=== PATIENT | male | born 1955 | race Caucasian/White ===

== ENCOUNTER 2024-06-06 13:39 | Inpatient (IN) | payer MEDICARE, OTHER ==
[~2024-06-06] VITALS: Ht 167.6 cm; Wt 78.6 kg
[2024-06-13] VITALS (13 sets, daily range): BP systolic 120–183; BP diastolic 56–86; PULSE 53–83; TEMP 97.2–98.7
[2024-06-13] MEDS ORDERED: LR 1,000 ML IV SCH (05:00)
[2024-06-13] MEDS ORDERED: Meclizine 25 MG TAB PO SCH (05:00)
[2024-06-13] MEDS ORDERED: VITAMIND3 5000 PO (06:34)
[2024-06-13] MEDS ORDERED: GLUCOTROL XL10 MG PO (06:35)
[2024-06-13] MEDS ORDERED: GLUCOPHAGE XR500 M1 PO (06:36)
[2024-06-13] MEDS ORDERED: LOPRESSOR100 MG PO (06:37)
[2024-06-13] MEDS ORDERED: MOTRIN 800800 MG/TAB PO (06:38)
[2024-06-13] MEDS ORDERED: Ondansetron 4 MG/2 ML VIAL IV PRN ×2 (07:00→11:45)
[2024-06-13] MEDS ORDERED: Acetaminophen 500 MG TAB PO PRN (07:00)
[2024-06-13] MEDS ORDERED: NS 1,000 ML IV SCH (07:00)
[2024-06-13] MEDS ORDERED: dexAMETHasone 10 MG/ML VIAL ONE (07:00)
[2024-06-13] MEDS ORDERED: Tranexamic Acid 1,000 MG/10 ML VIAL ONE (07:00)
[2024-06-13] MEDS ORDERED: oxyCODONE 5 MG TAB PO PRN (07:00)
[2024-06-13] MEDS ORDERED: Ondansetron 4 MG/2 ML VIAL ONE (07:00)
[2024-06-13] MEDS ORDERED: Midazolam 2 MG/2 ML VIAL ONE (07:00)
[2024-06-13] MEDS ORDERED: Magnes Hydrox (MOM) 80 MG/ML 30 ML CUP PO PRN (07:00)
[2024-06-13] MEDS ORDERED: Naloxone 0.4 MG/ML VIAL IV PRN (07:00)
[2024-06-13] MEDS ORDERED: Morphine 4 MG/ML VIAL IV PRN (07:00)
[2024-06-13] MEDS ORDERED: Mag/Al Hydrox/Simeth Susp 30 ML CUP PO PRN (07:00)
[2024-06-13] MEDS ORDERED: Lidocaine PF 2% (20 MG/ML) 5 ML VIAL ONE (07:00)
[2024-06-13] MEDS ORDERED: Bisacodyl 5 MG TAB PO PRN (07:00)
[2024-06-13] MEDS ORDERED: Acetaminophen 500 MG TAB PO SCH (07:00)
[2024-06-13] MEDS ORDERED: ZESTORETIC 25 M1 TAB PO (07:08)
[2024-06-13] MEDS ORDERED: NS 10 ML VIAL IJ ONE (08:08)
[2024-06-13] MEDS ORDERED: Thrombin Human (Recombinant) 5,000 UNITS VIAL TP ONE (08:08)
[2024-06-13] MEDS ORDERED: Morphine 4 MG/ML VIAL SQ ONE (08:08)
[2024-06-13] MEDS ORDERED: Sennosides/Docusate 8.6-50 MG TAB PO SCH (09:00)
[2024-06-13] MEDS ORDERED: Rivaroxaban 10 MG TAB PO SCH (09:00)
[2024-06-13] MEDS ORDERED: Ascorbic Acid 500 MG TAB PO SCH (09:00)
[2024-06-13] MEDS ORDERED: Magnes Hydrox (MOM) 80 MG/ML 30 ML CUP PO SCH (09:00)
[2024-06-13] MEDS ORDERED: fentaNYL 50 MCG/ML 1 ML SYRINGE/VIAL [PACU/SDC ONLY] IV PRN (11:45)
[2024-06-13] MEDS ORDERED: HYDROmorphone 1 MG/1 ML SYRINGE [PACU/SDC ONLY] IV PRN (11:45)
[2024-06-13] MEDS ORDERED: hydrALAZINE 20 MG/ML 1 ML VIAL IV PRN (11:45)
--- NOTE | 2024-06-13 12:50 | NUR ---
PT recently arrived to the floor from [facility]. He is awake, alert and oriented. Dressings to both knees are CDI with hemovac to compression. SCDs on bilaterally. Heart rate regular, lung sounds clear. Pedal pulses are hard to find, but able to feel where marked by OR staff. Pt stated that it was normal for him. Oriented pt to his room and educated on room service. Pt reported that has no pain at this time. Pt is able to feel me touch, but stated it was just felt as some pressure. He reports having more feeling on his left leg compared to his right leg.
--- NOTE | 2024-06-13 14:52 | NUR ---
dust box worker met with pt and his , Jana [phone] to discuss discharge planning. He reports to live with his in [place], [place]. He reports his PCP as Dr. Lee Khan and obtains medications from [facility] on [facility] with no difficulties. He confirms his insurance as Medicare A and B and [facility]. He states he is independent with ADLS and uses no DME. He does not have a DPOA-HC and is agreeable to his being NOK. SW informed him PT/OT will meet with him and determine any needs, but SW notes Dr. Shook states OP PT. Pt reports he is not familiar with any in the area. SW advised he research this to see which place he would like to utilize. PT/OT pending Discharge Plan: likely home with OP PT
[2024-06-13] MEDS ORDERED: Ketorolac 15 MG/ML VIAL IV SCH (15:00)
[2024-06-13] MEDS ORDERED: ceFAZolin 2 G in Water For Injection,Sterile 20 ML IV SCH (15:00)
--- NOTE | 2024-06-13 15:30 | NUR ---
PT in to work with pt, pt unable to stand due to not having complete feeling back in his legs. Pt reports that his right knee is bothering him more than the left, but that it is tolerable. Pt reports that he does not need to void, gave him a urinal. IVF to right forearm with fluids infusing. Pt has tolerated ada diet for lunch.
[2024-06-13] MEDS ORDERED: Insulin Lispro (HumaLOG) SQ SCH (17:00)
--- NOTE | 2024-06-13 17:20 | NUR ---
Did assist pt to sitting position. Pt wanted to try standing again. Did have assist from another RN assist with standing. Pt did okay, stood for about a minute and then sat back down. PT did well and reported that pain was tolerable during this. Call light within reach
--- NOTE | 2024-06-13 19:05 | NUR ---
PATIENT RESTING IN BED WITH TV OFF WITH NO FAMILY PRESENT WITH NO ACUTE DISTRESS NOTED. PATIENT ON ROOM AIR. INT TO RIGHT FOREARM INTACT WITH NO COMPLICATIONS NOTED. DRESSINGS TO BILATERAL KNEES CLEAN, DRY, AND INTACT. BILATERAL HEMOVACS INTACT AND DRAINGING. BEDSIDE SHIFT REPORT COMPLETED WITH MARY AT THIS TIME. PATIENT DENIES ANY NEEDS. BED IN LOW POSITION WITH WHEELS LOCKED WITH RAILS UP X3 AND CALL LIGHT WITHIN REACH.
--- NOTE | 2024-06-13 21:05 | NUR ---
PATIENT RESTING IN BED WITH TV OFF WITH NO FAMILY PRESENT WITH NO ACUTE DISTRESS NOTED. PATIENT ON ROOM AIR. INT TO RIGHT FOREARM INTACT WITH NO COMPLICATIONS NOTED. DRESSINGS TO BILATERAL KNEES INTACT, CLEAN, AND DRY. BLOOD SUGAR CHECKED AND WAS 329. PATIENT AGREED TO TAKE 6 UNITS OF INSULIN. ICE PACKS REFILLED. ASSESSMENT AND MEDICATION ADMINISTRATION COMPLETED AT THIS TIME. PATIENT TOLERATED WELL. NIGHT TIME SNACK OF PEANUT BUTTER AND SALTINE CRACKERS GIVEN. PATIENT DENIES ANY PAIN UNLESS HE IS UP WALKING TO BATHROOM. ALL NEEDS MET. BED IN LOW POSITION WITH WHEELS LOCKED WITH RAILS UP X3 AND CALL LIGHT WITHIN REACH.
[2024-06-14] VITALS (14 sets, daily range): BP systolic 117–178; BP diastolic 67–96; PULSE 62–70; TEMP 98.2–99.5
--- NOTE | 2024-06-14 06:52 | NUR ---
Pt doing okay this morning. He reports that he did not sleep well last night due to too many interuptions. Pt says pain is okay right now. I did assist with ordering his breakfast. No other needs, will continue to monitor.
[2024-06-14] MEDS ORDERED: Dextrose (Glucose) 15 GM (4 x 3.75 GM) Chewable TABLET PACK PO PRN (07:15)
[2024-06-14] MEDS ORDERED: Glucagon 1 MG VIAL IM PRN (07:15)
[2024-06-14] MEDS ORDERED: Dextrose 50% Water 25 GM/50 ML SYRINGE IV PRN (07:15)
--- NOTE | 2024-06-14 07:50 | NUR ---
Pt doing okay at this time. Assisted him to the restroom, voided without difficulty. Pt was one assist with a walker. He does have more complaints of pain to his right knee compared to his left. Pt did get his blood pressure taken shortly after arriving back to bed. Morning medications given and pt does have his breakfast with him. PRN pain medication given as well. No other needs, will continue to monitor
--- NOTE | 2024-06-14 09:30 | NUR ---
Pt doing well with one assist using a walker. Pt currently sitting up in the chair. Hemovac removed from right knee without difficulty. Was unable to remove hemovac to left knee. Removed dressing, but still met resistance. Rewrapped knee at this time. Pt has no needs or complaints, will continue to monitor
[2024-06-14 10:22] LABS: HEMATOCRIT 36.2 % (42.0-52.0); HEMOGLOBIN 12.5 g/dl (13.5-18.0)
[2024-06-14] MEDS ORDERED: Lisinopril 20 MG TAB PO SCH (10:30)
--- NOTE | 2024-06-14 11:00 | NUR ---
Pt has been up with OT, pt back in the chair at this time. I attempted to remove hemovac to left knee which did come out without difficult. Removed dressing to his right knee. Painted incision with betadine, covered with abd and wrapped with yang wrap. Pt tolerated with no complaints. No needs at this time, call light within reach and chair alarm on
--- NOTE | 2024-06-14 12:01 | NUR ---
dish room worker met with patient whom expressed he needs a walker for when he is ready for discharge. SW expressed she can assist with that and would send an order and have it delivered before discharge. SW secure emailed walker order and information to [facility]. Discharge plan: Home
--- NOTE | 2024-06-14 12:40 | NUR ---
D: M[employer] Operator [employer] stopped by room on rounds. A: Pt was resting and content. Pt has no needs right now. P: Mangle Operator [employer]ments informed pt that if he needed anything from the cloth folder hand area to let his nurse know. M[employer] will follow up as needed.
[2024-06-14 12:41] LABS: CALCIUM 8.9 mg/dL (8.4-10.2); CREATININE, serum 1.04 mg/dL (0.72-1.25); POTASSIUM 3.5 mEq/L (3.5-4.5)
--- NOTE | 2024-06-14 12:45 | NUR ---
BP was taken shortly after pt got back in to the chair from ambulating from the restroom. Will recheck. Minimal to no pain at rest, 7/10 with movement
[2024-06-14] MEDS ORDERED: Cephalexin 500 MG CAP PO SCH (17:45)
--- NOTE | 2024-06-14 18:35 | NUR ---
Pt has done well today. He is standby assist with a walker. Pt reports pain 1/10 at rest and then 6-7/10 to his right knee with movement. Continue to keep ice pack to knees. Pt has been getting up often
[2024-06-14] MEDS ORDERED: Celecoxib 200 MG CAP PO SCH (21:00)
--- NOTE | 2024-06-14 22:28 | NUR ---
Patient assessed around 2100. Alert and oriented, and able to make needs known. Reports level 8 pain with ambulation. Given PRN Roxicodone as requested for pain. Peripheral INT to right forearm. Denies SOB and dyspnea. LS CTA. HRR. BSAx4. No edema. Dressings to bilateral knees CDI. Ambulating to bathroom with walker. Voices no questions, needs, or concerns at this time. In bed with call light within reach.
[2024-06-15] VITALS (12 sets, daily range): BP systolic 117–169; BP diastolic 64–82; PULSE 66–83; TEMP 98.1–98.9
--- NOTE | 2024-06-15 06:07 | NUR ---
Patient given PRN Roxicodone once this shift, and scheduled Acetaminophen per orders. Voices no further questions, needs, or concerns at this time. In bed with call light within reach.
--- NOTE | 2024-06-15 08:24 | NUR ---
PT RESTING IN BED. INDEPENDENT IN ROOM. DENIES PAIN OR NEEDS AT THIS TIME. PLAN ON DISCHARGE THURSDAY TO . CAREPLAN REVIEWED.
[2024-06-15] MEDS ORDERED: Metoprolol Tartrate 50 MG TAB PO SCH (09:00)
--- NOTE | 2024-06-15 14:15 | NUR ---
DRESSING CHANGE COMPLETE BILATERALLY. AFTER SHOWER WITH OT. PT TOELRATED WELL. EDGES WELL APPROXIMATED, CARLTON INTACT.
[2024-06-15 19:42] LABS: HEMOGLOBIN 11.2 g/dl (13.5-18.0)
[2024-06-15 19:47] LABS: HEMATOCRIT 32.3 % (42.0-52.0)
--- NOTE | 2024-06-15 23:14 | NUR ---
patient lying in bed, alert and oriented x4. denies chest pain and shortnes of breath. ambulated in the lewis with PCT and walker, steady gait. IV in is patent, site CDI. bilateral knee dressings, CDI. SCDs in place, fall precautions in place, call light within reach. pt has no further needs, questions or concerns at this time.
[2024-06-16] VITALS (9 sets, daily range): BP systolic 127–169; BP diastolic 74–84; PULSE 68–77; TEMP 98.1–98.3
--- NOTE | 2024-06-16 08:30 | NUR ---
Patient greeted this AM and assessment was conducted, patient was resting in bed with legs elevated on pillow. No edema noted to all extremities. Patient reports that his legs are not feeling numb as they were on thursday post surgery. Pulse to lower extremity was +2, skin warm and normal in color. Patient lungs were clear, no cough noted. Abd sounds active, denies N/V. Patient was given morning meds at this time and he reported he doesnt need the MoM and probably needs to have a bowel movement now. Patient watched getting up out of bed, steady utilizing a walker without assistance. Had a large BM, independent with hygiene. Patient was then given a pain medication as PT walked into the room while patient was walking into the bathroom.
--- NOTE | 2024-06-16 09:06 | NUR ---
shell worker attended interdisciplinary clinical rounding with Dr. Walker. Dr. Walker reports patient is medically ready for discharge. JENNA met with patient to discuss discharge. Patient is still planning on returning home with outpatient PT that his primary care is referring him to. SW asked about his being able to transport him, patient stated his would be able to be here around 7 pm at the earliest. Patient made a comment about if another day would make a difference. SW explained if he is medically ready for discharge, Dr Shook would put in the orders as he is the primary doctor on his case. SW reviewed the important message from Medicare with patient. Patient understood and has no questions or concerns. Patient signed the form. SW made a copy, placed original in chart and provided copy to patient. Patient needs his walker delivered prior to discharge. JENNA notified [facility] patient would discharge today so they could deliver the walker to patient's hospital room. Discharge plan: Home with outpatient PT
[2024-06-16] MEDS ORDERED: hydroCHLOROthiazide 25 MG TAB PO SCH (10:00)
[2024-06-16] MEDS ORDERED: CEPHALEXIN500 M1 PO (15:29)
[2024-06-16] MEDS ORDERED: ULTRAM 50MG TAB50 MG PO (15:29)
[2024-06-16] MEDS ORDERED: NORCO 325 MG-51 TAB PO (15:29)
[2024-06-16] MEDS ORDERED: XARELTO10 MG PO (15:30)
--- NOTE | 2024-06-16 17:00 | NUR ---
PATIENT'S PHARMACY CALLED, HE IS CONCERNED THAT [facility] IS GOING TO COST OVER $400. NURSING CALLED PHARMACY BUT NO FREE PRESCRIPTION CARD AVAILABLE FOR HIS DOSE. PHARMACY MADE ALTERNATIVE MEDICATION RECS, PROVIDER NOTIFIED, SEE MED CHANGE. PATIENT GIVEN FREE PRESCRIPTION CARD FOR [facility]. UPDATED DISCHARGE PAPERWORK FOR PATIENT & CHART TO REFLECT CHANGES. PATIENT STILL HASN'T HAD HIS WALKER DELIVERED, NURSING FOLLOW UP WITH [facility]. FACILITY FORGOT TO DELIVER BUT IS BRINGING WALKER NOW. BTK [facility] CHANGED FOR DISCHARGE. PATIENT WAS VERY GRATEFUL FOR ALL NURSINGS HARD WORK FOR MAKING ALL THAT HAPPEN FOR HIS DISCHARGE AND SAID HE WAS VERY GLAD HE HAD HIS SURGERY HERE. PATIENT IS NOW RESTING UP IN BED WAITING FOR HIS RIDE.
--- NOTE | 2024-06-16 17:17 | NUR ---
Patient is discharging this evening around 1900, this nurse with [facility] went into the patients room to discuss discharge orders and instructions. Patient's dressings is due for a daily change per doctor's order. ABD dressing and yang wrap was removed from ricardo knees. No drainage to the L knee and minimal dried blood drainage was noted to the R ABD dressing. Incision is approximated, dry, with channing. Betadine was applied with 4x4 Gauze dressing with silk tape over to bilateral knees. Patients discharge instructions was conducted by Apolonia HIGHTOWER following the dressing change.
[2024-06-16] MEDS ORDERED: ELIQUIS 2.5 PO (17:19)
--- NOTE | 2024-06-16 18:50 | NUR ---
PATIENT'S RIDE IS HERE. DISCHARGING VIA WC TO PERSONAL VEHICLE.
== END 2024-06-16 18:55 | disposition home or self-care (01) | DRG 462 ==
LOC: SURG 06-13 05:46 → INPTSU 06-13 05:46 → SURG 06-13 07:30 → SDCO 06-13 07:30 → EDSTATUS 06-13 07:30 → SURG 06-13 12:35 → SDCO 06-16 07:30 → SURG 06-16 18:55
PROVIDERS: Internal Medicine; ADMIT Orthopaedic Surgery
PROC: 0SRC0J9 Replacement of Right Knee Joint with Synthetic Substitute, Cemented, Open Approach (ICD-10-PCS; 2024-06-13)
PROC: 0SRD0J9 Replacement of Left Knee Joint with Synthetic Substitute, Cemented, Open Approach (ICD-10-PCS; principal; 2024-06-13 07:30)
DX: M17.0 Bilateral primary osteoarthritis of knee (principal); M21.162 Varus deformity, not elsewhere classified, left knee; M21.161 Varus deformity, not elsewhere classified, right knee; I10 Essential (primary) hypertension; M24.562 Contracture, left knee; M24.561 Contracture, right knee; E11.9 Type 2 diabetes mellitus without complications; E78.5 Hyperlipidemia, unspecified; F17.210 Nicotine dependence, cigarettes, uncomplicated; Z79.84 Long term (current) use of oral hypoglycemic drugs; Z90.49 Acquired absence of other specified parts of digestive tract
CPT/HCPCS: A4314; A9284; C1713; C1776; J0688; J0690; J1100; J1580; J1815; J1885; J2250; J2270; J2405; J2704; J2795; J7120